=== PATIENT | male | born 1960 | race Caucasian/White ===

== ENCOUNTER → 2024-09-08 16:48 | Outpatient (REF) | payer MEDICARE, OTHER, SELFPAY | LOC: RAD 16:48 | PROVIDERS: ATTENDING PHYSICIAN Thoracic Surgery (Cardiothoracic Vascular Surgery); FAMILY PHYSICIAN Family Medicine | DX: I25.10 Atherosclerotic heart disease of native coronary artery without angina pectoris (principal); Z01.810 Encounter for preprocedural cardiovascular examination | CPT/HCPCS: 71250 ==

== ENCOUNTER 2024-09-10 04:56 | Inpatient (IN) | payer MEDICARE, OTHER, SELFPAY ==
[2024-09-06 12:13] VITALS: BMI 34.8
[2024-09-06 12:51] LABS: Urine Albumin Negative (Neg - Trace); Urine Bilirubin Negative (Negative); Urine Character Clear (Clear); Urine Color Yellow; Urine Glucose Negative (Negative); Urine Ketone Negative (Negative); Urine Leukocyte Negative (Negative); Urine Nitrite Negative (Negative); Urine Occult Blood Negative (Negative); Urine Urobilinogen Negative (Neg - 1+)
[2024-09-06 12:51] LABS: % Basophils 0.7 % (0-2); % Eosinophils 10.2 % (0-6); % Immature Granulocytes 0.3 % (0-0.5); % Lymphocytes 24.3 % (20.5-51.1); % Monocytes 9.5 % (1.7-9.3); Absolute Basophils 0.1 10^3/uL (0-0.2); Absolute Eosinophils 0.8 10^3/uL (0-0.7); Absolute Lymphocytes 1.8 10^3/uL (1.2-3.4); Absolute Monocytes 0.7 10^3/uL (0.1-0.6); Absolute Neutrophils 4.2 10^3/uL (1.4-6.5); Hematocrit 41.7 % (39.0-52.0); Hemoglobin 14.6 g/dL (13.0-18.0); Mean Corpuscular Hgb 31.7 pg (27.0-31.0); Mean Corpuscular Volume 90.7 fL (80.0-94.0); Mean Platelet Volume 8.7 fL (7.4-10.4); Nucleated Red Blood Cells % 0 % (-); Platelet Count 245 10^3/uL (130-400); Red Cell Dist. Width 12.6 % (11.5-14.5); White Blood Cell Count 7.6 10^3/uL (4.8-10.8)
[2024-09-06 13:09] LABS: APTT 25.8 Sec (23.4-35.0); INR 1.02; PT 13.7 Sec (11.4-14.6)
--- NOTE | 2024-09-06 13:32 | CM ---
Met with Mr. Bhatti in [facility]. He states prior to admission he resides alone in a two story home with three steps to enter. He states he has a first floor set-up. He states prior to he was independent with ambulation and adls. He states he does
not have any DME in the home. He states he has a prescription plan and sues [facility]. He states he has friends he can call to assist him at home if needed. He also has a nephew and niece who reside locally who are supportive. The
discharge plan is to return home with a home visit by the Transitional Care Nurse when medically stable.
We reviewed pre-op and post-op routines. We reviewed the shower instructions. He has the soap, written instructions and the Cardiothoracic Surgery Educational Booklet. We also reviewed restrictions including sternal precautions and driving
restrictions. We discussed a home visit by the Transitional Care Nurse. He is agreeable to a home visit. The plan is to for CABG on Tuesday, September 10, 2024.
[2024-09-06 13:38] LABS: ALT (SGPT) 25 U/L (0-50); AST (SGOT) 33 U/L (17-59); Albumin 4.9 g/dl (3.5-5.0); Alkaline Phosphatase 97 U/L (38-126); Blood Urea Nitrogen 17 mg/dl (9-20); Calcium 9.5 mg/dl (8.4-10.2); Carbon Dioxide 26 mmol/L (22-30); Chloride 104 mmol/L (98-107); Direct Bilirubin 0.3 mg/dl (0.0-0.4); Estimated Creatinine Clearance 99 ml/min; Glucose 108 mg/dl (70-99); Potassium 4.5 mmol/L (3.5-5.1); Sodium 140 mmol/L (135-145); Total Bilirubin 1.5 mg/dl (0.2-1.3); Total Protein 7.6 g/dl (6.3-8.2); eGFR > 60.00
[2024-09-07 03:09] LABS: Glycohemoglobin (HgbA1c) 5.5 % (4.0-5.6)
[2024-09-10] VITALS (15 sets, daily range): BP systolic 82–132; BP diastolic 59–78; BMI 30.6
[2024-09-10] MEDS: MAGNESIUM OXIDE 500 MG PO (05:23)
[2024-09-10] MEDS: LOPRESSOR 25 MG PO (05:24)
[2024-09-10] MEDS: BACTROBAN 2% OINTMENT 1 APPLIC NASAL ×2 (05:25→20:51)
[2024-09-10] MEDS: PROTONIX 40 MG PO (05:25)
--- NOTE | 2024-09-10 05:51 | PTCARENOTE ---
admitted pt into 2267. VS taken. labs sent. med rec and admission questions completed. pt clipped and washed with CHG wipes. pre-op meds given. pt confirms NPO since midnight and 2 CHG showers at home. awaiting CVOR.
--- NOTE | 2024-09-10 05:52 | W.CVOR.SURPR ---
CVOR Surgeon Immed Pre Op
-
I have examined this patient prior to performance of the scheduled procedure.
The patient's condition is unchanged from the time of the dictated/written History and
Physical and the patient is able to undergo the scheduled procedure.
CABG + MICHEL CLip + Sternal Fixation
[2024-09-10 07:36] LABS: ACT+ - POC 118 Seconds (82-134)
[2024-09-10 08:20] LABS: Urine Albumin Negative (Neg - Trace); Urine Bilirubin Negative (Negative); Urine Character Clear (Clear); Urine Color Yellow; Urine Glucose Negative (Negative); Urine Ketone Negative (Negative); Urine Leukocyte Negative (Negative); Urine Nitrite Negative (Negative); Urine Occult Blood Negative (Negative); Urine Urobilinogen Negative (Neg - 1+)
--- NOTE | 2024-09-10 08:54 | CM ---
Reviewed chart. Mr. Bhatti is in the operating room today. Prior to admission he resides alone in a two story home with three steps to enter. He has a first floor set-up. Prior to admission he was independent with ambulation and adls. He does not
have any DME in the home. He has a prescription plan and uses [facility]. He has a friends he can call to assist him at home if needed. He also has a supportive nephew and niece who reside locally. Medical work-up in progress. The
discharge plan is to return home with a home visit by the Transitional Care Nurse when medically stable.
[2024-09-10 09:09] LABS: ACT+ - POC 536 Seconds (82-134)
[2024-09-10 09:21] LABS: Glucose - POC 126 mg/dl (70-99); HCO3 - POC 26 mmol/L (21-28); Hematocrit - POC 31 % PCV (42-52); Hemodilution- POC No; Hemoglobin Calculated - POC 10.7; Ionized Calcium - POC 1.11 mmol/L (1.15-1.33); Lactate - POC 0.63 mmol/L (0.36-0.75); O2 Saturation %Calculated-POC 99.6 % (94-98); PCO2 - POC 45 mmHg (35-48); PO2 - POC 188 mmHg (83-108); Potassium - POC 3.6 mmol/L (3.5-5.1); Sodium - POC 139 mmol/L (136-145); Specimen Type - POC Arterial; pH - POC 7.36 (7.35-7.45)
[2024-09-10 09:29] LABS: ACT+ - POC 520 Seconds (82-134)
[2024-09-10 09:54] LABS: ACT+ - POC 587 Seconds (82-134)
[2024-09-10 09:58] LABS: B.E. - POC 0.9 mmol/L; Glucose - POC 93 mg/dl (70-99); HCO3 - POC 23 mmol/L (21-28); Hematocrit - POC 34 % PCV (42-52); Hemodilution- POC No; Hemoglobin Calculated - POC 11.5; Ionized Calcium - POC 1.08 mmol/L (1.15-1.33); Lactate - POC < 0.30 mmol/L (0.36-0.75); PCO2 - POC 28 mmHg (35-48); PO2 - POC 359 mmHg (83-108); POC Comment PRE; Potassium - POC 3.7 mmol/L (3.5-5.1); Sodium - POC 136 mmol/L (136-145); Specimen Type - POC Arterial; pH - POC 7.52 (7.35-7.45)
[2024-09-10 09:59] LABS: B.E. - POC 3.3 mmol/L; Glucose - POC 141 mg/dl (70-99); HCO3 - POC 28 mmol/L (21-28); Hematocrit - POC 32 % PCV (42-52); Hemodilution- POC Yes; Hemoglobin Calculated - POC 10.9; Ionized Calcium - POC 1.06 mmol/L (1.15-1.33); Lactate - POC < 0.30 mmol/L (0.36-0.75); PCO2 - POC 43 mmHg (35-48); PO2 - POC 356 mmHg (83-108); POC Comment CPB; Potassium - POC 4.1 mmol/L (3.5-5.1); Sodium - POC 140 mmol/L (136-145); Specimen Type - POC Arterial; pH - POC 7.42 (7.35-7.45)
[2024-09-10 10:22] LABS: ACT+ - POC 504 Seconds (82-134)
[2024-09-10 10:26] LABS: B.E. - POC 3.3 mmol/L; Glucose - POC 145 mg/dl (70-99); HCO3 - POC 27 mmol/L (21-28); Hematocrit - POC 31 % PCV (42-52); Hemodilution- POC Yes; Hemoglobin Calculated - POC 10.6; Ionized Calcium - POC 1.03 mmol/L (1.15-1.33); Lactate - POC < 0.30 mmol/L (0.36-0.75); PCO2 - POC 35 mmHg (35-48); PO2 - POC 389 mmHg (83-108); POC Comment CPB; Potassium - POC 4.5 mmol/L (3.5-5.1); Sodium - POC 138 mmol/L (136-145); Specimen Type - POC Arterial; pH - POC 7.49 (7.35-7.45)
[2024-09-10 10:38] LABS: ACT+ - POC 112 Seconds (82-134)
[2024-09-10 10:56] LABS: B.E. - POC 1.6 mmol/L; Glucose - POC 167 mg/dl (70-99); HCO3 - POC 26 mmol/L (21-28); Hematocrit - POC 32 % PCV (42-52); Hemodilution- POC Yes; Ionized Calcium - POC 1.02 mmol/L (1.15-1.33); Lactate - POC < 0.30 mmol/L (0.36-0.75); PCO2 - POC 38 mmHg (35-48); PO2 - POC 406 mmHg (83-108); POC Comment WARM; Potassium - POC 4.8 mmol/L (3.5-5.1); Sodium - POC 139 mmol/L (136-145); Specimen Type - POC Arterial; pH - POC 7.44 (7.35-7.45)
[2024-09-10 11:00] LABS: B.E. - POC 1.3 mmol/L; Glucose - POC 133 mg/dl (70-99); HCO3 - POC 26 mmol/L (21-28); Hematocrit - POC 30 % PCV (42-52); Hemodilution- POC Yes; Ionized Calcium - POC 1.29 mmol/L (1.15-1.33); Lactate - POC 1.03 mmol/L (0.36-0.75); O2 Saturation %Calculated-POC 99.9 % (94-98); PCO2 - POC 38 mmHg (35-48); PO2 - POC 248 mmHg (83-108); POC Comment POST; Potassium - POC 3.6 mmol/L (3.5-5.1); Sodium - POC 140 mmol/L (136-145); Specimen Type - POC Arterial; pH - POC 7.44 (7.35-7.45)
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
--- NOTE | 2024-09-10 11:59 | W.PN.UPDATE ---
Update Note
Progress Note Update
Crystalloid:� 1700 mL
U.O.:� 350 mL
Blood:� none
Wires:� v-wires
Pressors:� Levophed (2)
Sedatives:� Precedex (0.5)
�
NEURO: sedated on Precedex, pupils +2mm B/L
RESP: #8OT @23 cm> 550/40%/12/5. Lungs clear B/L. 2 mediastinal (0 cc on arrival) and L pleural (0 cc on arrival) chest tubes to -20cm suction. Sanguineous drainage
CV: RRR +S1, S2, no S3, no�rub, no murmur. Dermabond to median sternotomy. RIJ w/ Cordis
ABD: round, soft, no BS
EXT: no edema, +1/4 DP pulses B/L, no femoral bruit, LLE TRACI wrap intact; L radial A-line intact
: Green with clear yellow urine
�
A/P: POD #0 s/p CABG x 3 (STANLEY to LAD, Ao to RSVG to OM, Ao to RSVG to RPDA) with Dr. Rosario
NIRAJ: EF�50%
- wean and extubate
- Goal SBP 90-130
- Initiate ASA 6-hours post-op/Plx tomorrow
- Continue insulin gtt for 24-hours post-op (A1C 5.5%)
�
# acute surgical blood loss anemia-expected
- trend CBC
# Hyperlipidemia
- resume�atorvastain
[2024-09-10 12:02] LABS: Glucose - Point of Care 100 mg/dl (70-99)
[2024-09-10 12:14] LABS: Hematocrit 31.3 % (39.0-52.0); Hemoglobin 11.2 g/dL (13.0-18.0); Platelet Count 150 10^3/uL (130-400)
[2024-09-10 12:17] LABS: B.E. -1.7 mmol/L; HCO3 23.7 mmol/L (21-28); O2 Saturation % 97.6 % (94-98); PCO2 42 mmHg (35-48); PO2 111 mmHg (83-108); Potassium 3.9 mMOL/L (3.5-5.1); Sodium 134 mMOL/L (136-145); pH 7.36 (7.35-7.45)
[2024-09-10 12:24] LABS: Blood Urea Nitrogen 13 mg/dl (9-20); Estimated Creatinine Clearance 103 ml/min; Glucose 91 mg/dl (70-99); Magnesium 2.8 mg/dl (1.6-2.3)
[2024-09-10] MEDS: ANCEF 10 IV ×2 (12:25)
[2024-09-10] MEDS: NSS 500 IV (12:25)
[2024-09-10 12:26] LABS: INR 1.41; PT 17.5 Sec (11.4-14.6)
[2024-09-10 12:27] LABS: APTT 29.1 Sec (23.4-35.0)
[2024-09-10] MEDS: KCL 50 IV (12:27)
[2024-09-10 13:02] LABS: Glucose - Point of Care 118 mg/dl (70-99)
[2024-09-10] MEDS: TYLENOL PO (13:07)
--- NOTE | 2024-09-10 13:08 | PTCARENOTE ---
Patient received from CVOR at 1150; Sedated and intubated; SR with 1st AVB on monitor; VSS; Distant heart sounds; Epicardial V-wire present and insulated, temporary pacemaker turned on with settings VVI 50/15/2.0; +1 B/L LE edema; +2 DP and radial
pulses present; Lungs diminished at bases; ETT size 8 positioned and secured at 23 cm center lip; Ventilator settings SIMV 12/550/5/5 FiO2 40%; CTx3 to -20 cm wall suction draining bloody drainage - no air leak, tidaling, or crepitus noted;
Hypoactive BS; Green catheter in place draining clear, yellow urine; Sternal midline incision glued, approximated, and NELIDA - CDI, left groin puncture site covered with 4x4 and tegaderm - CDI, LLE wrapped in TRACI wrap with gauze packing underneath -
CDI; Left radial A-line in place, SLIC present in RIJ Cordis - all lines zeroed and leveled; PIVx1 - #20 left forearm; Levo, insulin, and precedex infusing - see nursing flowsheets for further details; K repleted x1; see nursing documentation for
further details.
--- NOTE | 2024-09-10 13:47 | CON.INTV ---
Consultation
Consultation Request
Date/Time Consultation Requested: 09/10/2024
Date/Time Consultation Performed: 09/10/2024
Requesting Provider: Ten Rosario
Performing Provider: Sona Paul
Reason for Consultation: CABG
Medical History
-
History of Present Illness:
Patient is a 64-year-old gentleman with past medical history significant for hyperlipidemia, carotid artery dissection in the past, depression, neuropathy, pneumothorax who reported 6 months of exertional chest discomfort. He was evaluated by
cardiology and had abnormal exercise tolerance test. This was followed by coronary artery catheterization which showed significant triple-vessel disease. Patient was subsequently evaluated by vascular surgery and was scheduled for an elective
coronary artery bypass graft and left atrial appendage surgery. Postsurgery patient was admitted to CVICU and livestock judging coach consult was requested for further input.
Past medical history
Hyperlipidemia, depression, remote history of carotid artery dissection, pneumothorax, neuropathy, anxiety
Past surgical history
Carotid artery dissection, ankle surgery, knee replacement bilateral
Family history.
Patient's father had coronary artery disease and sudden cardiac in late 50s. Mother from Parkinson's in the 80s.
Social history.
Patient smoked for about 10 pack years, quit 40 years ago. Drinks socially. 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
Allergies / Home Medications
Allergies
Allergy/AdvReac Type Severity Reaction Status Date / Time
codeine Allergy Itching Verified 09/03/24 14:52
hylan G-F 20 Allergy Swelling Verified 09/03/24 14:52
prednisone Allergy unk Verified 09/03/24 14:52
Home Medications
�Medication �Instructions �Recorded �Confirmed �Last Taken �Type
amlodipine 5 mg tablet 5 mg PO DAILY 09/03/24 09/10/24 09/07/24 06:00 History
aspirin 81 mg tablet,delayed 81 mg PO DAILY 09/03/24 09/10/24 09/09/24 06:00 History
release
atorvastatin 80 mg tablet 80 mg PO HS 09/03/24 09/10/24 09/08/24 20:00 History
coenzyme Q10 100 mg capsule 100 mg PO DAILY 09/03/24 09/10/24 09/03/24 06:00 History
(CoQ-10)
lorazepam 1 mg tablet 1 mg PO HS PRN sleep/anxiety 09/03/24 09/10/24 09/09/24 20:00 History
multivitamin 1 tab PO DAILY 09/03/24 09/10/24 09/03/24 06:00 History
nitroglycerin 0.4 mg sublingual 0.4 mg sublingual Q5M PRN chest 09/03/24 09/10/24 Unknown History
tablet pain
turmeric 1 cap PO DAILY 09/03/24 09/10/24 09/03/24 06:00 History
vitamin B complex 1 tab PO DAILY 09/03/24 09/10/24 09/03/24 06:00 History
Review of Systems
-
Unable to Obtain full review of systems at this time due to: Patient Intubation
Vitals / Labs / Diagnostic Testing
Vital Signs
Temp Pulse Resp BP Pulse Ox
96.9 F L 64 12 95/67 96
09/10/24 13:00 09/10/24 13:00 09/10/24 13:00 09/10/24 13:00 09/10/24 13:00
Lab Data
09/10/24 12:00
Laboratory Results
09/10/24
12:00
PT 17.5 H
INR 1.41
APTT 29.1
pH 7.36
pCO2 42
pO2 111 H
HCO3 23.7
O2 Delivery Level
Microbiology
09/06/24 12:25 Nose MRSA Screen - Final
No Methicillin Resistant Staphylococcus aureus isolated.
Diagnostic Testing:
Physical Exam
-
HEENT: Normocephalic
Cardiovascular: S1/S2
Respiratory: Clear and Non-Labored Respirations
GI: Soft and Non Distended
Neurology: Other (Starting to wake up post op. Able to respond to simple commands. )
Skin: Warm
General: Comfortable
Assessment
-
S/p CABG and left atrial appendage ligation POD #0
Titrate off pressors per protocol, on Levophed @1. MAP 75, CVP 13
ECHO reviewed with low/normal function
Management of chest tubes per primary service
Intubated/off sedation
Pain control
RASS goal of 0 to -1
Current vent settings: PSV, 5/5/40%/5. Pulling 600+ tidal volume, RR 12.
ABG(s) reviewed 7.36, 42, 111
CXR with no obvious opacities/infiltrates, low lung volumes, ETT in good position, lines/tubes in place
Extubate per protocol
Maintain supplement oxygen as needed
No prior history of pulmonary disease
Prior PFTs reviewed
Can add nebulizers if needed
Aspiration precautions
Encouraged incentive spirometry, OOB/ambulation/early mobility
Advance diet as tolerated following extubation
GI prophylaxis if indicated for mechanical ventilation >48 hours
Monitor critical I/O's
Green/chest tube output
Hb/platelets postoperatively stable
Trend CBC for now
Can transfuse if indicated for Hb <7, plt <50 in surgical patients
DVT prophylaxis including SCDs
Insulin protocol initiated and ongoing
Transition to SQ/off as indicated per team
Critical Care time 58 mins -- The patient is admitted for acute critical illness for the treatment of vital organ failure and/or prevention of further life-threatening conditions. Total care includes time spent in review of history, physical exam,
medications, hemodynamic/ventilator parameters, laboratory data, imaging and discussion with house staff, pharmacy, respiratory therapy, canvas marker, and nursing.
Data:
CXR 08/2024: Mild left sided atelectasis
NIARJ 08/2024: Normal left ventricular size and systolic function, no regional wall motion abnormalities seen. Stage I diastolic dysfunction.
Normal right ventricular size and function.
The aorta has atheroma less than 5 mm and mild calcifications.
Mild left atrial enlargement.
Mild tricuspid regurgitation.
CT Chest 08/2024: 1. Severe coronary arterial calcification.
2. Thoracic aorta is of normal caliber.
--- NOTE | 2024-09-10 14:00 | PTCARENOTE ---
RT in room and patient placed on CPAP trial. ABG due at 1430
[2024-09-10 14:04] LABS: Glucose - Point of Care 98 mg/dl (70-99)
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
[2024-09-10 14:43] LABS: B.E. - POC 0.3 mmol/L; Blood Urea Nitrogen - POC 12 mg/dl (3-120); Chloride - POC 109 mmol/L (96-111); Creatinine - POC 0.65 mg/dl (0.3-1.0); Glucose - POC 75 mg/dl (70-99); HCO3 - POC 25 mmol/L (21-28); Hematocrit - POC 30 % PCV (42-52); Hemodilution- POC No; Hemoglobin Calculated - POC 10.1; Ionized Calcium - POC 1.13 mmol/L (1.15-1.33); O2 Saturation %Calculated-POC 99.1 % (94-98); PCO2 - POC 37 mmHg (35-48); PO2 - POC 133 mmHg (83-108); Potassium - POC 4.1 mmol/L (3.5-5.1); Sodium - POC 142 mmol/L (136-145); Specimen Type - POC Arterial; pH - POC 7.43 (7.35-7.45)
--- NOTE | 2024-09-10 14:46 | PTCARENOTE ---
EPOC ABG reviewed at bedside with SUSSY Thayer; RT at bedside; Patient extubated at 1445 and placed on 6L NC; IS 1250 ml
[2024-09-10] MEDS: CALCIUM GLUCONATE 100 IV (14:49)
[2024-09-10 15:04] LABS: Glucose - Point of Care 91 mg/dl (70-99)
[2024-09-10] MEDS: DILAUDID 0.25 MG IV (15:23)
[2024-09-10] MEDS: LOW STRENGTH ASPIRIN 81 MG PO (15:23)
[2024-09-10 16:02] LABS: Glucose - Point of Care 91 mg/dl (70-99)
[2024-09-10 16:26] LABS: Hematocrit 33.1 % (39.0-52.0); Hemoglobin 11.7 g/dL (13.0-18.0); Platelet Count 191 10^3/uL (130-400)
[2024-09-10] MEDS: PACERONE PO (16:40)
[2024-09-10 16:49] LABS: Hepatitis C Antibody Negative (Negative)
[2024-09-10] MEDS: NEURONTIN 100 MG PO ×2 (17:01→21:14)
[2024-09-10] MEDS: ANCEF 5 IV (17:01)
--- NOTE | 2024-09-10 17:18 | PTCARENOTE ---
Oxygen weaned to 2L NC; SpO2 95-100%; iCal repleted x1; PRN Dilaudid given accordingly for pain
[2024-09-10] MEDS: DILAUDID 0.5 MG IV (17:34)
[2024-09-10 18:02] LABS: Glucose - Point of Care 118 mg/dl (70-99)
--- NOTE | 2024-09-10 20:00 | PTCARENOTE ---
Patient received at 1900. AOx4, sleepy, SR 1st AVB on CM, VSS, distant heart tones, rub auscultated; v wire tied to pacer box but not connected, +1 B/L LE edema, all pulses present. Lungs dim at the bases, CTx3 to -20 cm suction with sanguineous
drainage; no air leak, tidaling, or crepitus noted. BS hypoactive, abdomen obese, SNT, tolerating PO meds/sips and chips. Green catheter draining clear, yellow urine. All surgical sites stable and CDI. L radial mati, RIJ cordis with slic, PIVx1 -
all applicable lines leveled and zeroed. Levo and insulin infusing per protocol. See nursing work list for additional intervention details.
[2024-09-10 20:07] LABS: Glucose - Point of Care 94 mg/dl (70-99)
[2024-09-10] MEDS: CALCIUM GLUCONATE 130 MG IV (20:50)
[2024-09-10] MEDS: SENOKOT-S 1 TABLET PO (20:52)
[2024-09-10] MEDS: LIPITOR 80 MG PO (21:14)
[2024-09-10] MEDS: TYLENOL 1000 MG PO (21:14)
[2024-09-10 22:10] LABS: Glucose - Point of Care 104 mg/dl (70-99)
[2024-09-10] MEDS: ROXICODONE 5 MG PO (22:17)
[2024-09-11] VITALS (31 sets, daily range): BP systolic 90–136; BP diastolic 52–85; PULSE 78; O2SAT 95–96; BMI 30.4
--- NOTE | 2024-09-11 | PTCARENOTE ---
Patient stable, sleeping between care, pain management.
[2024-09-11 00:16] LABS: Glucose - Point of Care 90 mg/dl (70-99)
[2024-09-11] MEDS: DILAUDID 0.5 MG IV (00:20)
[2024-09-11] MEDS: ROXICODONE 2.5 MG PO (01:14)
[2024-09-11] MEDS: DILAUDID 0.25 MG IV (01:15)
[2024-09-11] MEDS: ANCEF 5 IV ×2 (01:15→10:10)
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
[2024-09-11 02:07] LABS: Glucose - Point of Care 92 mg/dl (70-99)
[2024-09-11 03:47] LABS: Glucose - Point of Care 89 mg/dl (70-99)
[2024-09-11 03:53] LABS: Hematocrit 31.5 % (39.0-52.0); Hemoglobin 10.8 g/dL (13.0-18.0); Mean Corp Hgb Conc. 34.3 g/dL (33.0-37.0); Mean Corpuscular Volume 93.5 fL (80.0-94.0); Mean Platelet Volume 8.7 fL (7.4-10.4); Platelet Count 179 10^3/uL (130-400); Red Blood Cell Count 3.37 10^6/uL (4.70-6.10); Red Cell Dist. Width 12.8 % (11.5-14.5); White Blood Cell Count 13.4 10^3/uL (4.8-10.8)
--- NOTE | 2024-09-11 04:00 | PTCARENOTE ---
Labs drawn and sent, pain management continued, VSS
[2024-09-11 04:18] LABS: Blood Urea Nitrogen 19 mg/dl (9-20); Calcium 9.1 mg/dl (8.4-10.2); Carbon Dioxide 24 mmol/L (22-30); Chloride 110 mmol/L (98-107); Estimated Creatinine Clearance 90 ml/min; Glucose 103 mg/dl (70-99); Potassium 4.6 mmol/L (3.5-5.1); Sodium 140 mmol/L (135-145); eGFR > 60.00
[2024-09-11 05:08] LABS: Glucose - Point of Care 105 mg/dl (70-99)
[2024-09-11] MEDS: TYLENOL 1000 MG PO ×3 (05:12→22:13)
[2024-09-11 06:15] LABS: Glucose - Point of Care 90 mg/dl (70-99)
[2024-09-11 07:10] LABS: Glucose - Point of Care 98 mg/dl (70-99)
--- NOTE | 2024-09-11 07:17 | PTCARENOTE ---
pt received from outgoing RN, pt POD1 CABG, aaox4, 2lnc, vss, delined this am, rt IJ cordis, epicardial wire connected to pacer box not on, pain management, sternum incision cdi, left safia wrap cdi, MSCT x2, LP X1, insulin gtt till this AM hga1c 5.1.
--- NOTE | 2024-09-11 07:46 | W.PN.ANS.POP ---
Anesthesia Post Operative
- Anesthesia Post Op Note
Vital Signs Stable-See Nursing Note: Yes
Airway Patent: Yes
Adequate Pain Control: Yes
Change in Mental Status: No
Current Postoperative Nausea & Vomiting: No
Anesthesia Complications: No
General Anesthetic Recall: No
Unplanned Admission: No
Post Op Hydration Adequate: Yes
[2024-09-11] MEDS: PACERONE 200 MG PO ×3 (08:17→22:13)
[2024-09-11] MEDS: PROTONIX 40 MG PO (08:17)
[2024-09-11] MEDS: BACTROBAN 2% OINTMENT 1 APPLIC NASAL ×2 (08:18→20:34)
[2024-09-11] MEDS: NEURONTIN 100 MG PO ×3 (08:18→22:13)
[2024-09-11] MEDS: PLAVIX 75 MG PO (08:18)
[2024-09-11] MEDS: MAGNESIUM OXIDE 500 MG PO ×2 (08:18→20:34)
[2024-09-11] MEDS: SENOKOT-S 1 TABLET PO ×2 (08:18→20:34)
[2024-09-11] MEDS: LIDOCAINE 4% PATCH 1 PATCH TOPICAL (08:18)
[2024-09-11 08:19] LABS: Glucose - Point of Care 128 mg/dl (70-99)
[2024-09-11 10:10] LABS: Glucose - Point of Care 210 mg/dl (70-99)
[2024-09-11] MEDS: NSS IV (10:10)
--- NOTE | 2024-09-11 10:45 | W.PN.INTV ---
Addendum entered and electronically signed by Sona Paul MD 09/11/24 12:22:
- Patient transferring out of ICU
- [employer] Crewmember service will sign off, please call as needed
Original Note:
Today's Communication / Plan
Recommendations
- Incentive spirometry
- Transition to subcu insulin per protocol
- Increase activity as tolerated
Assessment
-
Patient is a 64-year-old gentleman with past medical history significant for hyperlipidemia, carotid artery dissection in the past, depression, neuropathy, pneumothorax who reported 6 months of exertional chest discomfort. He was evaluated by
cardiology and had abnormal exercise tolerance test. This was followed by coronary artery catheterization which showed significant triple-vessel disease. Patient was subsequently evaluated by vascular surgery and was scheduled for an elective
coronary artery bypass graft and left atrial appendage surgery. Postsurgery patient was admitted to CVICU and cattle dealer consult was requested for further input.
S/p CABG and left atrial appendage ligation POD #1
Titrate off pressors per protocol, off levophed. MAP 86
ECHO reviewed with low/normal function
Management of chest tubes per primary service
Extubated 09/10, ABG(s) reviewed 7.36, 42, 111
CXR with no obvious opacities/infiltrates
Maintain supplement oxygen as needed, 2L O2, mid 90's.
No prior history of pulmonary disease. Methacholine challenge test in the past was negative.
Can add nebulizers if needed
Aspiration precautions
Encouraged incentive spirometry, OOB/ambulation/early mobility
Advance diet as tolerated following extubation
GI prophylaxis: Pantoprazole
Monitor critical I/O's
Green/chest tube output
Hb/platelets postoperatively stable, mild drift
Trend CBC for now
Can transfuse if indicated for Hb <7, plt <50 in surgical patients
DVT prophylaxis including SCDs
Insulin protocol initiated and ongoing
Transition to SQ/off as indicated per team
Critical Care time 42 mins -- The patient is admitted for acute critical illness for the treatment of vital organ failure and/or prevention of further life-threatening conditions. Total care includes time spent in review of history, physical exam,
medications, hemodynamic/ventilator parameters, laboratory data, imaging and discussion with house staff, pharmacy, respiratory therapy, funeral workers, and nursing.
Data:
CXR 08/2024: Mild left sided atelectasis
NIRAJ 08/2024: Normal left ventricular size and systolic function, no regional wall motion abnormalities seen. Stage I diastolic dysfunction.
Normal right ventricular size and function.
The aorta has atheroma less than 5 mm and mild calcifications.
Mild left atrial enlargement.
Mild tricuspid regurgitation.
CT Chest 08/2024: 1. Severe coronary arterial calcification.
2. Thoracic aorta is of normal caliber.
Subjective Dataa
Subjective Data
Date of Service:
Date of Service: September 11, 2024
Review of Systems
Genitourinary: Other (All 14 systems reviewed and negative except as stated above in the history of present illness.)
Objective Data
Data Reviewed
Vital Signs / I&O / Oxygen:
Vital Signs
Temp Pulse Resp BP Pulse Ox
97.9 F 72 15 95/54 94
09/11/24 08:00 09/11/24 10:00 09/11/24 10:00 09/11/24 10:00 09/11/24 10:00
Intake and Output
09/10/24 09/11/24 09/12/24
06:59 06:59 06:59
Intake Total 884.4 / 894.8 283.9 / 283.9
Output Total 1240 / 1270 75 / 75
Balance -355.6 / -375.2 208.9 / 208.9
SaO2 [CPAP/PSV] 99
SaO2 [SIMV] 96
SaO2 94
Nasal Cannula flow liters per 2
minute
Physical Exam
General: Comfortable
HEENT: Normocephalic
Cardiovascular: S1-S2
Respiratory: Clear and Non-Labored Respirations
GI: Soft and Non Distended
Neurology: Awake, Alert and Oriented
Skin: Warm
Labs/Micro/Reports
Lab Data
09/11/24 03:43
09/11/24 03:43
Laboratory Results
09/10/24
12:00
PT 17.5 H
INR 1.41
APTT 29.1
pH 7.36
pCO2 42
pO2 111 H
HCO3 23.7
O2 Delivery Level
[2024-09-11 11:19] LABS: Glucose - Point of Care 171 mg/dl (70-99)
--- NOTE | 2024-09-11 11:46 | PTCARENOTE ---
pt reassessment unchanged from previous, vss, 2lnc, insulin gtt off this afternoon, LPCT dced, oob in chair, NSR, DTV @ 1230.
--- NOTE | 2024-09-11 13:06 | W.PN.CARDCBS ---
Addendum entered and electronically signed by Mic Castrejon DO 09/11/24 13:41:
I saw and examined the patient.
The Correctional Probation Officer's note was reviewed and I agree with the note.
Comment:
Plan:
Cont post op care
Off all drips
Extubated evening of 09/10/2024, still requiring 2 L of oxygen via nasal cannula. Encourage incentive spirometry and pulmonary toilet. Wean as able
Maintaining sinus rhythm. Continue prophylactic amiodarone
Stable H/H
Continue asa, plavix
Monitor HR and Bp
Continue atorvastatin
Follow up with [facility] upon DC
Original Note:
Today's Communication / Plan
-
Encourage incentive spirometry
Wean oxygen as tolerated
Continue low-dose metoprolol, amiodarone and atorvastatin
Impression / Plan
-
Primary Neck Band Maker: Dr[facility] Dejesus of [facility]
Assessment:
Elective admission for MV CAD
s/p CABG x3 In situ STANLEY to LAD, Ao to RSVG to OM, Ao to RSVG to RPDA, MICHEL clip 09/10/24
HTN
HLD
Carotid artery dissection
Depression
Remote former smoker
FH of premature CAD
ECHO 08/27/24: EF 50%, no RWMA, no significant valvular pathology
Plan:
-s/p CABG x3 In situ STANLEY to LAD, Ao to RSVG to OM, Ao to RSVG to RPDA, MICHEL clip 09/10/24
-Patient overall doing well. Weaned off all drips.
-Extubated evening of 09/10/2024, still requiring 2 L of oxygen via nasal cannula. Encourage incentive spirometry and pulmonary toilet. Wean as able
-Chest x-ray 09/11/2024 no pneumothorax
-EKG 09/11/2024 showing sinus rhythm. Review of telemetry shows patient maintaining sinus rhythm. Continue prophylactic amiodarone
-Electrolytes and renal function stable. Continue to monitor and trend
-Stable hgb 10.8, follow post op. Continue asa, plavix
-Blood pressure a bit on the soft side. Continue low-dose metoprolol. Of note patient was on amlodipine 5 mg as outpatient preop
-Continue atorvastatin
-follow up with [facility] upon DC
-d/w nursing
Progress Note - Neck Band Maker
Subjective
Date of Service: September 11, 2024
Patient seen and examined. Patient sitting up in chair. Patient reports that he is feeling well. Had some pain overnight from one of the chest tubes which has since been removed and feeling much better.
Objective
Labs:
09/11/24 03:43
09/11/24 03:43
Labs
Hgb 10.8 g/dL (13.0-18.0) L 09/11/24 03:43
Hct 31.5 % (39.0-52.0) L 09/11/24 03:43
Plt Count 179 10^3/uL (130-400) 09/11/24 03:43
PT 17.5 Sec (11.4-14.6) H 09/10/24 12:00
INR 1.41 09/10/24 12:00
APTT 29.1 Sec (23.4-35.0) 09/10/24 12:00
Sodium 140 mmol/L (135-145) 09/11/24 03:43
Potassium 4.6 mmol/L (3.5-5.1) 09/11/24 03:43
BUN 19 mg/dl (9-20) 09/11/24 03:43
Creatinine 0.8 mg/dL (0.7-1.3) 09/11/24 03:43
Glucose 103 mg/dl (70-99) H 09/11/24 03:43
Vital Signs and I&O:
Vital Signs
Temp Pulse Resp BP Pulse Ox
98 F 71 12 101/64 95
09/11/24 12:00 09/11/24 12:00 09/11/24 12:00 09/11/24 12:00 09/11/24 12:00
Vital Signs
Temp Pulse Resp BP Pulse Ox
98 F 71 12 101/64 95
09/11/24 12:00 09/11/24 12:00 09/11/24 12:00 09/11/24 12:00 09/11/24 12:00
Intake & Output
09/09/24 09/10/24 09/11/24 09/12/24
06:59 06:59 06:59 06:59
Intake Total 884.4 / 894.8 308.9 / 308.9
Output Total 1240 / 1270 85 / 85
Balance -355.6 / -375.2 223.9 / 223.9
Physical Exam
Physical Exam
GEN: No distress, awake, Ox3, sitting up in chair
HEENT: supple, anicteric, mmm
LUNGS: Mildly decreased CTA, no wheezes/rales
Chest: Sternotomy without rocking or clicking, incision well-approximated
CV: Reg, S1/S2, positive chest tube rub, no murmur or gallop
ABD: soft, BS+, NT/ND
EXT: No edema, clubbing or cyanosis
NEURO: Gross non-focal
SKIN: No rash, warm, dry, pink
[2024-09-11] MEDS: FERRLECIT 110 MG IV (13:38)
[2024-09-11] MEDS: LOW STRENGTH ASPIRIN 81 MG PO (14:25)
--- NOTE | 2024-09-11 15:26 | PTCARENOTE ---
pt reassessment unchanged from previous, vss, 2L-->RA, NSR, oob in chair, pain under controlled, DC insulin protocol non diabetic.
--- NOTE | 2024-09-11 20:00 | PTCARENOTE ---
Assumed care of the patient at 1900. Patient OOB to chair, reports feeling well, AOx4, pleasant. Placed BIB with asstx1. VSS, distant heart tones, v wire tied to pacer box but not connected, +1 B/L LE edema, all pulses present. Lungs dim at the
bases on RA, CTx2 to -20 cm suction with sanguineous drainage; no air leak, tidaling, or crepitus noted. BS hypoactive, abdomen obese, SNT, tolerating PO without nausea. Voiding in urinal without difficulty. All surgical sites stable and CDI. RIJ
cordis, PIVx1. See nursing work list for additional intervention details.
[2024-09-11] MEDS: LIPITOR 80 MG PO (22:13)
[2024-09-12] VITALS (17 sets, daily range): BP systolic 107–149; BP diastolic 59–114; BMI 31.4
--- NOTE | 2024-09-12 | PTCARENOTE ---
No issues, pain well controlled with scheduled regimen, sleeping between care. Placed on 2LNC for SpO2 88% on RA while sleeping. SpO2 93% on 2L. Assessment of needs ongoing.
[2024-09-12] MEDS: FLEXERIL 5 MG PO (03:23)
[2024-09-12 03:47] LABS: Hematocrit 29.6 % (39.0-52.0); Mean Corp Hgb Conc. 33.8 g/dL (33.0-37.0); Mean Corpuscular Hgb 31.8 pg (27.0-31.0); Mean Corpuscular Volume 94.3 fL (80.0-94.0); Mean Platelet Volume 9.1 fL (7.4-10.4); Platelet Count 161 10^3/uL (130-400); Red Blood Cell Count 3.14 10^6/uL (4.70-6.10); Red Cell Dist. Width 13.1 % (11.5-14.5); White Blood Cell Count 11.4 10^3/uL (4.8-10.8)
--- NOTE | 2024-09-12 04:00 | PTCARENOTE ---
Flexeril for referred pain from CT. Labs drawn and sent, otherwise no changes. VSS
[2024-09-12 04:09] LABS: Blood Urea Nitrogen 25 mg/dl (9-20); Calcium 8.5 mg/dl (8.4-10.2); Carbon Dioxide 28 mmol/L (22-30); Chloride 104 mmol/L (98-107); Estimated Creatinine Clearance 103 ml/min; Glucose 154 mg/dl (70-99); Potassium 4.6 mmol/L (3.5-5.1); Sodium 134 mmol/L (135-145); eGFR > 60.00
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
[2024-09-12] MEDS: TYLENOL 1000 MG PO ×3 (06:39→22:22)
--- NOTE | 2024-09-12 07:30 | PTCARENOTE ---
Assumed care of patient from warehouse worker 2nd shift RN. AAO x 3 SR on monitor. Epicardial wire insulated. Room air 93%. Is to 1000. Chest tubes x 2 to -20 cm suction. No air leak or crepitus noted. Abdomen soft and non tender. Appetite good. Voiding
w/o issue. General plus one anasarca. Pulses palpable. Surgical dressings c,d,i. Plan for day discussed.
[2024-09-12] MEDS: NEURONTIN 100 MG PO ×3 (08:24→22:23)
[2024-09-12] MEDS: PLAVIX 75 MG PO (08:24)
[2024-09-12] MEDS: PACERONE 200 MG PO ×3 (08:24→22:23)
[2024-09-12] MEDS: PROTONIX 40 MG PO (08:24)
[2024-09-12] MEDS: SENOKOT-S 1 TABLET PO ×2 (08:24→19:53)
[2024-09-12] MEDS: LOW STRENGTH ASPIRIN 81 MG PO (08:24)
[2024-09-12] MEDS: MAGNESIUM OXIDE 500 MG PO ×2 (08:24→19:53)
[2024-09-12] MEDS: BACTROBAN 2% OINTMENT 1 APPLIC NASAL ×2 (08:25→19:55)
[2024-09-12] MEDS: LIDOCAINE 4% PATCH TOPICAL (08:25)
--- NOTE | 2024-09-12 10:36 | W.PN.CARDCBS ---
Today's Communication / Plan
-
Cont post op care
Cont DAPT
Remains sinus
Impression / Plan
-
.
Primary Wood Treating Inspector: Dr. Dejesus of [facility]
Impression:
Elective admission for MV CAD
s/p CABG x3 In situ STANLEY to LAD, Ao to RSVG to OM, Ao to RSVG to RPDA, MICHEL clip 09/10/24HTN
HLD
Carotid artery dissection
Depression
Remote former smoker
FH of premature CAD
ECHO 08/27/24: EF 50%, no RWMA, no significant valvular pathology
Plan:
Cont post op care. CT out September 12.
Maintaining sinus rhythm. Continue prophylactic amiodarone
Stable H/H
Continue DAPT with ASA and Plavix
Monitor HR and Bp
Continue atorvastatin
Follow up with [facility] upon DC
Discussed with nursing
Progress Note - Wood Treating Inspector
Subjective
Date of Service: September 12, 2024
Pt seen and examined. No complaints. No chest pain or shortness of breath.
Objective
Labs:
09/12/24 03:26
09/12/24 03:26
Labs
Hgb 10.0 g/dL (13.0-18.0) L 09/12/24 03:26
Hct 29.6 % (39.0-52.0) L 09/12/24 03:26
Plt Count 161 10^3/uL (130-400) 09/12/24 03:26
PT 17.5 Sec (11.4-14.6) H 09/10/24 12:00
INR 1.41 09/10/24 12:00
APTT 29.1 Sec (23.4-35.0) 09/10/24 12:00
Sodium 134 mmol/L (135-145) L 09/12/24 03:26
Potassium 4.6 mmol/L (3.5-5.1) 09/12/24 03:26
BUN 25 mg/dl (9-20) H 09/12/24 03:26
Creatinine 0.7 mg/dL (0.7-1.3) 09/12/24 03:26
Glucose 154 mg/dl (70-99) H 09/12/24 03:26
Vital Signs and I&O:
Vital Signs
Temp Pulse Resp BP Pulse Ox
98.6 F 89 18 141/76 92
09/12/24 08:00 09/12/24 09:00 09/12/24 08:00 09/12/24 08:29 09/12/24 08:00
Vital Signs
Temp Pulse Resp BP Pulse Ox
98.6 F 89 18 141/76 92
09/12/24 08:00 09/12/24 09:00 09/12/24 08:00 09/12/24 08:29 09/12/24 08:00
Intake & Output
09/10/24 09/11/24 09/12/24 09/13/24
06:59 06:59 06:59 06:59
Intake Total 884.4 / 894.8 848.9 / 848.9 250 / 250
Output Total 1240 / 1270 1100 / 1100 55 / 55
Balance -355.6 / -375.2 -251.1 / -251.1 195 / 195
Physical Exam
Physical Exam
General: No acute distress, AAOX3
Neck: Negative JVD
Heart: Regular, Negative S3 positive S1/S2, Negative S4, No murmur
Lungs: CTA b/l, negative wheezes/rales/rhonchi
Abd: Positive BS, NT/ND, neg rebound/rigidity/guarding
Ext: Negative cyanosis/clubbing/edema
Neuro: nonfocal
--- NOTE | 2024-09-12 10:41 | W.PN.UPDATE ---
Update Note
Progress Note Update
1 bipolar surgery ventricular wire removed without difficulty. Bedrest x 1 hour with vital signs every 15 minutes x 4.
[2024-09-12] MEDS: LASIX 40 MG IV (11:53)
--- NOTE | 2024-09-12 12:00 | PTCARENOTE ---
Epicardial wire removed by CT MOTORCYCLE DELIVERER, VS Q 15 minutes per protocol. Chest tubes removed after. Pt tolerated w/o issue. 40 IV lasix administered. Diuresing w/o issue. VSS, Assessment unchanged from prior.
[2024-09-12] MEDS: FERRLECIT 110 MG IV (13:30)
[2024-09-12] MEDS: NSS 500 IV (13:30)
[2024-09-12] MEDS: LOPRESSOR 12.5 MG PO ×2 (19:52→22:23)
[2024-09-12] MEDS: KCL 20 MEQ PO (19:53)
--- NOTE | 2024-09-12 20:00 | PTCARENOTE ---
Resumed care of pt sitting in chair AAOx3, watching car racing. Hr in the 80's in NSR on the monitor. POX 92-94% on RA. Lungs dec at bases. Occasional cough. + bowel, round abd. No Bm, passing gas, bowel regimen in place. Sternal incision with surg
glue open to air. CT sites intact. Pt using urinal and ambulating to bathroom when needed. Pt ambulatory in hallway with assistance. Palpable peripheral pulses. +1 B/L LE edema. Left groin site with dressing intact, ecchymosis noted. Left leg
aquacell dressing intact. Right IJ cordis in place with NSS@10ml/hr. Left Int capped. Pt denies any complaints at this time. Call soto in reach. Will continue to monitor.
[2024-09-12] MEDS: LIPITOR 80 MG PO (22:22)
[2024-09-13 04:52] VITALS: BP 158/85
[2024-09-13 05:00] VITALS: BP 160/79
[2024-09-13 05:04] VITALS: BMI 30.7
[2024-09-13] MEDS: TYLENOL 1000 MG PO (05:07)
[2024-09-13 05:11] LABS: Hematocrit 30.5 % (39.0-52.0); Hemoglobin 10.3 g/dL (13.0-18.0); Mean Corp Hgb Conc. 33.8 g/dL (33.0-37.0); Mean Corpuscular Hgb 31.6 pg (27.0-31.0); Mean Corpuscular Volume 93.6 fL (80.0-94.0); Platelet Count 159 10^3/uL (130-400); Red Blood Cell Count 3.26 10^6/uL (4.70-6.10); Red Cell Dist. Width 12.8 % (11.5-14.5)
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
[2024-09-13 05:39] LABS: Blood Urea Nitrogen 23 mg/dl (9-20); Calcium 8.4 mg/dl (8.4-10.2); Carbon Dioxide 30 mmol/L (22-30); Chloride 103 mmol/L (98-107); Estimated Creatinine Clearance 103 ml/min; Glucose 109 mg/dl (70-99); Potassium 4.1 mmol/L (3.5-5.1); Sodium 137 mmol/L (135-145); eGFR > 60.00
--- NOTE | 2024-09-13 06:08 | PTCARENOTE ---
Pt awake intermittently t/o the night. No issues to report. Vital signs stable. Pt remained in NSR on the monitor. pt OOB to chair until about midnight then awake and in the chair again this am around 0545. Pt states he is feeling great and looking
forward to being discharged.
[2024-09-13 08:10] VITALS: BP 137/67
[2024-09-13] MEDS: LOPRESSOR 25 MG PO (08:10)
[2024-09-13] MEDS: PLAVIX 75 MG PO (08:10)
[2024-09-13] MEDS: LOW STRENGTH ASPIRIN 81 MG PO (08:10)
[2024-09-13] MEDS: PROTONIX 40 MG PO (08:11)
[2024-09-13] MEDS: BACTROBAN 2% OINTMENT 1 APPLIC NASAL (08:11)
[2024-09-13] MEDS: SENOKOT-S 1 TABLET PO (08:11)
[2024-09-13] MEDS: MAGNESIUM OXIDE 500 MG PO (08:11)
[2024-09-13] MEDS: PACERONE 200 MG PO (08:11)
[2024-09-13] MEDS: LIDOCAINE 4% PATCH TOPICAL (08:11)
[2024-09-13] MEDS: NEURONTIN 100 MG PO (08:11)
--- NOTE | 2024-09-13 09:13 | PTCARENOTE ---
Assumed care of patient from shift nurse manager RN. EROSO x 3, sitting up in the chair. SR on monitor. Room air. Abdomen soft and non tender. Voiding independently. Pulses palpable. Surgical sites c,d,i. Plan for day discussed.
[2024-09-13] MEDS: MILK OF MAGNESIA 30 ML PO (09:53)
[2024-09-13 12:31] VITALS: BP 97/49
--- NOTE | 2024-09-13 12:50 | PTCARENOTE ---
Ambulating in room w/o issue, attempting to produce a BM after taking Milk of magnesia. Pt with an abundance of flatus. VSS. Assessment unchanged from prior.
--- NOTE | 2024-09-13 13:23 | PTCARENOTE ---
Ambulated and able to climb full stair case w/o issue with RN. KOKO. Assessment unchanged from prior.
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
[2024-09-13 15:07] VITALS: BP 117/94
== END 2024-09-13 16:14 | disposition home or self-care (01) | DRG 236 ==
LOC: CVICU 04:56
PROVIDERS: Anesthesiology; Nurse Practitioner; ADMITTING PHYSICIAN Thoracic Surgery (Cardiothoracic Vascular Surgery); CONSULT PHYSICIAN Internal Medicine; CONSULT PHYSICIAN Internal Medicine Cardiovascular Disease; FAMILY PHYSICIAN Family Medicine
PROC: 5A1221Z Performance of Cardiac Output, Continuous (ICD-10-PCS; 2024-09-10)
PROC: 02L70CK Occlusion of Left Atrial Appendage with Extraluminal Device, Open Approach (ICD-10-PCS; 2024-09-10)
PROC: 06BP4ZZ Excision of Right Saphenous Vein, Percutaneous Endoscopic Approach (ICD-10-PCS; 2024-09-10)
PROC: 021109W Bypass Coronary Artery, Two Arteries from Aorta with Autologous Venous Tissue, Open Approach (ICD-10-PCS; 2024-09-10)
PROC: 02100Z9 Bypass Coronary Artery, One Artery from Left Internal Mammary, Open Approach (ICD-10-PCS; 2024-09-10)
PROC: B24BZZ4 Ultrasonography of Heart with Aorta, Transesophageal (ICD-10-PCS; 2024-09-10)
DX: I25.118 Atherosclerotic heart disease of native coronary artery with other forms of angina pectoris (principal); D62 Acute posthemorrhagic anemia; J98.11 Atelectasis; E87.1 Hypo-osmolality and hyponatremia; E78.1 Pure hyperglyceridemia; F32.A Depression, unspecified; G62.9 Polyneuropathy, unspecified; F41.9 Anxiety disorder, unspecified; E66.811 Obesity, class 1; E86.1 Hypovolemia; E87.70 Fluid overload, unspecified; I10 Essential (primary) hypertension; Z68.30 Body mass index [BMI] 30.0-30.9, adult; Z79.82 Long term (current) use of aspirin; Z79.899 Other long term (current) drug therapy; Z82.49 Family history of ischemic heart disease and other diseases of the circulatory system; Z87.891 Personal history of nicotine dependence; Z96.653 Presence of artificial knee joint, bilateral
CPT/HCPCS: 36415; 71045; 71046; 71250; 80048; 80053; 81003; 82248; 82330; 82565; 82805; 82947; 82962; 83036; 83735; 84132; 84302; 84520; 85014; 85018; 85025; 85027; 85049; 85610; 85730; 86803; 86850; 86900; 86901; 86920; 87070; 93005; 93312; 93320; 93325; 93880; 93923; 93930; 93970; 94002; J2916